=== PATIENT | female | born 1995 | race Caucasian/White ===

== ENCOUNTER 2017-06-22 06:55 | Inpatient (IN) | payer MEDICAID ==
[~2017-06-22] VITALS: Ht 162.6 cm; Wt 69.1 kg
[2017-06-22] VITALS (49 sets, daily range): BP systolic 109–166; BP diastolic 55–90; PULSE 79–169; TEMP 98–99.7
[2017-06-22] MEDS ORDERED: PRENATAL (07:33)
[2017-06-22 08:01] LABS: BASO # 0.1 (0.0-0.2); BASO % 0.4 % (0.0-2.0); EOS # 0.1 (0.0-0.7); EOS % 1.1 % (0-4.0); GRAN % 64.3 % (42.2-75.2); HEMATOCRIT 37.5 % (35.0-45.0); HEMOGLOBIN 12.5 g/dl (12.0-15.0); LYMPH # 3.2 (1.2-3.4); LYMPH % 25.4 % (20.0-51.0); MEAN CELL VOLUME 96 fl (80.0-95.0); MEAN CORPUSCULAR HEMOGLOBIN 32 pg (26.0-32.0); MEAN CORPUSCULAR HGB CONC 33 g/dl (33.0-37.0); MEAN PLATELET VOLUME 11.7 fl (7.4-10.4); MONO # 0.9 (0.1-0.6); MONO % 7.4 % (1.7-9.3); PLATELET COUNT 171 K/mm3 (130-400); RED BLOOD COUNT 3.89 M/mm3 (4.10-5.30); WHITE BLOOD COUNT 12.5 K/mm3 (4.8-10.8)
[2017-06-22] MEDS ORDERED: PERCOCET 325 MG1 TA2 PO (18:07)
[2017-06-22] MEDS ORDERED: MOTRIN 800800 MG/TAB PO (18:07)
[2017-06-23 01:45] VITALS: BP 123/63; PULSE 92; TEMP 98.3
[2017-06-23 05:40] VITALS: BP 134/72; PULSE 111; TEMP 98.4
[2017-06-23 08:03] VITALS: BP 112/57; PULSE 98; TEMP 98.1
[2017-06-23 11:24] VITALS: BP 129/75; PULSE 96; TEMP 98.8
[2017-06-23 16:00] VITALS: BP 122/68; PULSE 92; TEMP 98
[2017-06-23 20:30] VITALS: BP 97/61; PULSE 97; TEMP 97.9
[2017-06-24 07:00] VITALS: BP 114/68; PULSE 76; TEMP 98
== END 2017-06-24 11:00 | disposition home or self-care (01) | DRG 774 ==
LOC: OB 06:55 → LDR 06:55 → OB 08:49
PROVIDERS: Obstetrics & Gynecology
PROC: 10E0XZZ Delivery of Products of Conception, External Approach (ICD-10-PCS; principal; 2017-06-22)
DX: O48.0 Post-term pregnancy (principal); O98.312 Other infections with a predominantly sexual mode of transmission complicating pregnancy, second trimester; O99.334 Smoking (tobacco) complicating childbirth; F17.210 Nicotine dependence, cigarettes, uncomplicated; O35.9XX0 Maternal care for (suspected) fetal abnormality and damage, unspecified, not applicable or unspecified; Z3A.40 40 weeks gestation of pregnancy; Z37.0 Single live birth
CPT/HCPCS: J2590; J2795; J7120

== ENCOUNTER → 2020-04-29 | Outpatient (CLI) | payer MEDICAID ==
[~2020-04-29] MED LIST: MOTRIN 800800 MG/TAB PO; PERCOCET 325 MG1 TA2 PO; PRENATAL
== END ==
LOC: ZCOL.LAB 12:00
DX: Z20.828 Contact with and (suspected) exposure to other viral communicable diseases (principal)

== ENCOUNTER 2020-05-10 00:16 | Inpatient (IN) | payer MEDICAID ==
[2020-05-10] VITALS (31 sets, daily range): BP systolic 98–137; BP diastolic 47–95; PULSE 68–126; TEMP 97.9–98.8
[~2020-05-10] VITALS: Ht 162.6 cm; Wt 70.5 kg
--- NOTE | 2020-05-10 | NUR ---
0000- PATIENT AMBULATORY TO THE UNIT WITH MOTHER BY HER SIDE. PATIENT ORIENTATED TO ROOM AND CHANGED INTO GOWN. PATIENT REPORTS GFM, DENIES LOF, AND STATES SOME BLOODY SHOW SINCE GETTING HER MEMBRANES STRIPPED YESTERDAY. 0008- EFM AND TOCO ON AND TRACING. VITALS TAKEN, ASSESSMENT COMPLETED. SVE /-2. 0035- PROVIDER UPDATED AND ADMIT ORDERED. SEE PHYSICIAN NOTIFICATION. CONSENTS SIGNED, IV STARTED, FLUIDS RUNNING, ANESTHESIA NOTIFIED FOR EPIDURAL. LABS AND UA SENT TO LAB.
[2020-05-10] MEDS ORDERED: EZFE 200200 MG PO (00:43)
[2020-05-10 01:40] LABS: BASO # 0.1 (0.0-0.2); BASO % 0.3 % (0.0-2.0); EOS # 0.1 (0.0-0.7); EOS % 0.5 % (0-4.0); GRAN # 13.2 (1.4-6.5); GRAN % 76.8 % (42.2-75.2); HEMOGLOBIN 10.3 g/dl (12.5-16.0); LYMPH # 2.6 (1.2-3.4); LYMPH % 15.1 % (20.0-51.0); MEAN CELL VOLUME 99 fl (80.0-100.0); MEAN CORPUSCULAR HEMOGLOBIN 33 pg (27.0-31.0); MEAN CORPUSCULAR HGB CONC 33 g/dl (33.0-37.0); MEAN PLATELET VOLUME 11.6 fl (7.4-10.4); MONO # 1.1 (0.1-0.6); MONO % 6.4 % (1.7-9.3); PLATELET COUNT 196 K/mm3 (130-400); RED BLOOD COUNT 3.15 M/mm3 (4.10-5.30); REDCELL DISTRIBUTION WIDTH-CV 12.2 % (11.5-14.5)
[2020-05-10 01:41] LABS: HEMATOCRIT 31.1 % (37.0-47.0)
[2020-05-10 01:54] LABS: TRICYCLIC ANTIDEPRESS URINE NEGATIVE
--- NOTE | 2020-05-10 02:12 | NUR ---
0156- RN TO BEDSIDE TO HELP SET UP PATIENT AND ROOM FOR EPIDURAL PLACEMENT. EFM AND TOCO ON AND TRACING INTERMITTENTLY DUE TO MATERNAL POSITION. RN REMAINS AT BEDSIDE. 0209- SS DOSE 0212- TEST DOSE, SEE ANESTHESIA RECORD. 0216- PATIENT ASSISTED TO WL POSITION. RN REMAINS AT BEDSIDE.
--- NOTE | 2020-05-10 04:30 | NUR ---
0430- DR. ROSEN AND RN TO BEDSIDE FOR AROM AND SVE. 0434- AROM, WITH MODERATE CLEAR FLUID NOTED. SVE / PER PROVIDER.
--- NOTE | 2020-05-10 05:31 | NUR ---
0516- DR. ROSEN AND RN TO BEDSIDE FOR SVE. PATIENT COMPLETE. 0519- PRACTICE PUSH WITH DR. ROSEN. ADVISED FOR DOVE TO BE TAKEN OUT AND TO PRACTICE PUSH WITH THE RN AND LET HIM KNOW WHEN THEY WERE CLOSE. 0520- DOVE OUT WITH 175 YELLOW URINE RETURN NOTED. RN REMAINS AT BEDSIDE AND CONTINUES TO PRACTICE PUSH WITH PATIENT DURING CONTRACTIONS. 0526- RN PRACTICE PUSHING WITH PATIENT AND BABY HEAD IS AFTER ONE GOOD PUSH. ADVISED PATIENT TO STOP AND NOTIFIED PROVIDER AND STAFF THAT WE WERE READY FOR DELIVERY. PATIENT AND ROOM SET UP FOR DELIVERY. 0531- OF VIABLE MALE . INFANT PLACED TO MOTHERS ABDOMEN AND NURSERY NURSE ASSUMED CARE AT THIS POINT. 0534- OF PLACENTA. PITOCIN TURNED ON AND RUNNING AT 333ML/HR PER PROTOCOL. FUNDUS MASSAGED TO FIRM BY PROVIDER WITH SMALL AMOUNT OF BLOOD NOTED. PATIENT INTACT PER PROVIDER AND EBL 100. 0535- RECOVERY STARTED. FUNDUS FIRM WITH SMALL AMOUNT OF BLOOD NOTED. VITALS STABLE. RN REMAINS AT BEDSIDE AND CLEANS UP ROOM AND PATIENT.
[2020-05-11 04:30] VITALS: BP 106/48; PULSE 80; TEMP 97.9
--- NOTE | 2020-05-11 07:00 | NUR ---
Baby brought back to room. Patient alert, denies any needs or discomfort.
[2020-05-11] MEDS ORDERED: IBU600 MG PO (08:51)
[2020-05-11 09:00] VITALS: BP 112/75; PULSE 76; TEMP 98
--- NOTE | 2020-05-11 12:03 | NUR ---
Powder Expert received consult for the patient due to history of drug use and incarceration during this . Per patient's nurse she and physician have no concerns about the patient and her baby discharging home. ANDREW met with the patient. The patient has a two year old son at home with his father, Nilton. She shares 50/50 custody Nilton. This son has never had any CPS involvement. Nilton is not father this baby. The FOB is not involved. The two year old's father is supportive. The patient's father and stepmom are supportive. SW addressed the drug use and incarceration. The patient's 2 year old was with Nilton during incarceration. After incarceration the patient went to [facility] from 11/14/2019-12/11/2019 for drug use treatment. The patient currently goes to [facility] for individual talk therapy and group therapy. The group is called [facility]. The patient reports this helps and has not had trigger or cravings for a few months. She know where to go if these events occur. The patient did test positive for marijuana on 02/20/2020. Per OB record the last meth use was in October of 2019. The patient denies any depression or anxiety. The patient has all supplies she needs. ANDREW made a CPS reports. Intake # [id number]. ANDREW faxed medical record information to [facility]. Baby Boy Agustina [id number]. Cord Pending. Patient UDS negative at admission. ANDREW collaborated the above information with the patient's nurse.
--- NOTE | 2020-05-11 14:00 | NUR ---
Discharge instructions given, verbalizes understanding.
== END 2020-05-11 14:00 | disposition home or self-care (01) | DRG 807 ==
LOC: LDRO 00:16 → OB 01:00 → LDR 01:00 → OB 09:00
PROVIDERS: Obstetrics & Gynecology; ADMIT Obstetrics & Gynecology
PROC: 10E0XZZ Delivery of Products of Conception, External Approach (ICD-10-PCS; principal; 2020-05-10)
DX: O99.02 Anemia complicating childbirth (principal); Z37.0 Single live birth; D64.9 Anemia, unspecified; O99.334 Smoking (tobacco) complicating childbirth; Z3A.39 39 weeks gestation of pregnancy; F17.200 Nicotine dependence, unspecified, uncomplicated; O76 Abnormality in fetal heart rate and rhythm complicating labor and delivery
CPT/HCPCS: J2590; J2795; J7120

== ENCOUNTER 2020-10-21 12:06 | Emergency (ER) | payer MEDICAID ==
[~2020-10-21] VITALS: Ht 162.6 cm; Wt 56.8 kg
[~2020-10-21 12:06] MED LIST changes: +EZFE 200200 MG PO; +IBU600 MG PO
[2020-10-21 12:47] VITALS: BP 124/88; PULSE 93; TEMP 98.1
== END 2020-10-21 16:52 | disposition left against medical advice (07) ==
LOC: COL.ER 12:06
DX: N76.89 Other specified inflammation of vagina and vulva (principal)